=== PATIENT | male | born 1995 | race Caucasian/White ===

== ENCOUNTER → 2020-09-23 11:02 | Outpatient (BNVA) | payer SELFPAY | PROVIDERS: Visit Provider Nurse Practitioner Family | DX: Z20.822 Contact with and (suspected) exposure to COVID-19 (principal) | CPT/HCPCS: 87635 ==

== ENCOUNTER 2024-08-03 16:15 | Inpatient (IN) | payer SELFPAY ==
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
[2024-08-03 16:22] VITALS: RESP 17
[2024-08-03 16:48] LABS: Basophils # 0.1 10^3/uL (0.0-0.1); Basophils % 0.5 %; Eosinophils # 0.2 10^3/uL (0.0-0.8); Eosinophils % 1.2 %; Hematocrit 45.8 % (37-53); Lymphocytes # 1.7 10^3/uL (0.8-4.8); Lymphocytes % 12.4 %; Mean Corpuscular HGB Conc 34.9 g/dL (30-55); Mean Corpuscular Hemoglobin 29.6 pg (27-33); Mean Corpuscular Volume 84.8 fl (82-101); Mean Platelet Volume 9.8 fL (7.4-10.4); Monocytes # 0.8 10^3/uL (0.2-0.9); Monocytes % 5.5 %; Neutrophils # 10.96 10^3/uL (1.8-7.7); Neutrophils % 79.9 %; Nucleated Red Blood Cells % 0 %; Platelet Count 235 10^3/cmm (157-399); Red Cell Distribution Width 13.6 % (12.1-15.1); White Blood Count 13.74 10^3/uL (3.29-11.43)
[2024-08-03 17:05] LABS: Alanine Aminotransferase 23 U/L (0-41); Albumin Level 4.7 g/dL (3.5-5.2); Alkaline Phosphatase 63 U/L (40-130); Anion Gap 17.7 (5-19); Aspartate Amino Transferase 15 U/L (0-40); Blood Urea Nitrogen 10 mg/dL (6-20); Calcium 9.1 mg/dL (8.5-10.5); Carbon Dioxide 24 mmol/L (22-29); Chloride 105 mmol/L (98-107); Creatinine Clr Calc Pharmacy 141.0378; Globulin 2.4 g/dL (1.3-4.6); Glomerular Filtration Rate 114.3 mL/min (90-130); Glucose 94 mg/dL (65-115); Osmolality Calculated 295 mOsm/kg (285-295); Potassium 3.7 mmol/L (3.5-5.1); Sodium 143 mmol/L (136-145); Total Bilirubin 0.7 mg/dL (0.15-1.2); Total Protein 7.1 g/dL (6.6-8.7)
[2024-08-03 17:07] LABS: Acetaminophen < 5.0 ug/mL (10-30); Alcohol Level < 10 mg/dL (0-10); Salicylate < 0.3 mg/dL (3-10)
[2024-08-03 17:08] VITALS: BP 144/80; PULSE 98; RESP 18; TEMP 36.6; O2SAT 94
[2024-08-03 17:51] VITALS: RESP 16
[2024-08-03 18:17] VITALS: BP 175/90; PULSE 82; RESP 16; TEMP 36.6; O2SAT 96
[2024-08-03 19:17] VITALS: BP 134/80; PULSE 78; RESP 18; TEMP 37.3; O2SAT 97
--- NOTE | 2024-08-03 19:40 | PC.NURSE ---
Patient came into the ED with affidavit from [facility]. Patient had a plan to take an overbundance of melatonin and hang himself. Patient also cut his left wrist today; there are two superficial scratches on left inner wrist. [facility] ago when he overdosed on sleeping pills. Patient says that he has a diagnosis of schizophrenia and suspects that he is autistic, but has never been diagnosed. Patient says that he experiences auditory and visual hallucinations. Patient constantly hears gibberish, and sometimes hears voices telling him to harm himself. Patient frequently sees his brother ( in 2008), and a former co-worker. Patient says that he is depressed. Patient says that he maybe has anxiety. Patient denies HI. Patient works at [employer] and lives in his father s and step-mother's basement. Patient doesn't have much support. Patient said that he cut himself today so that he could feel something. Patient also said that he has fleeting suicidal thoughts that he is sometimes able to ignore, and at other times, he acts on. Patient said that he feels lonely, but at the same time, he hates people. Patient quit drinking about three weeks ago. Said he was drinking a fifth of alcohol every two days for five years until this became too expensive. Patient was taking a medication for the auditory and visual hallucinations, but ran out of his medication about three weeks ago. Patient is interested in medication for depression. Patient has used therapy in the past but says that this did not help him.
--- NOTE | 2024-08-03 19:53 | PC.NURSE ---
96 hr rights reviewed with pt @[id number] with assistance of [facility] corrections officer Hair. All education reviewed at this time. No verbalized questions or concerns for HS. Pt copy was left with pt. Pt provided water. No further needs communicated to HS or other ER staff when asked.
[2024-08-03] MEDS: trazodone 50 mg Tablet PO (19:57)
[2024-08-04 06:00] VITALS: BP 129/85; PULSE 80; RESP 15; TEMP 36.9; O2SAT 100
[2024-08-04 08:23] LABS: Bilirubin Urine Negative (Negative); Blood Urine Negative (Negative); Glucose Urine UA Negative (Normal); Ketones Urine Negative (Negative); Leukocyte Esterase Urine Negative (Negative); Nitrate Urine Negative (Negative); Protein Urine Negative (Negative); Specific Gravity, Urine 1.011 (1.005-1.030); Urine Appearance Clear (CLEAR); Urine Color Yellow (Yellow); Urobilinogen Urine 0.2 mg/dL (Negative)
[2024-08-04 08:28] LABS: Add Urine Microscopic? YES; Bacteria Urine None Seen /hpf; Hyaline Casts Urine 0-4 /lpf; RBC Urine 0-2 /hpf (0-2); Squamous Epithelial Cell Urine 0-5 /hpf (0-5); WBC Urine 0-5 /hpf (0-5)
[2024-08-04 08:36] LABS: Amphetamines Screen Urine Negative (Negative); Barbiturates Screen Urine Negative (Negative); Benzodiazepines Screen Urine Negative (Negative); Cocaine Screen Urine Negative (Negative); Opiate Screen Urine Negative (Negative); PCP Screen Urine Negative (Negative); THC Screen Urine Negative (Negative)
[2024-08-04 10:22] LABS: Add Urine Culture? No
[2024-08-04 14:00] VITALS: BP 122/80; PULSE 89; RESP 16; TEMP 36.8; O2SAT 99
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
[2024-08-04] MEDS: acetaminophen 325 mg Tablet 650 MG PO (15:11)
[2024-08-04] MEDS: hyDROXYzine 25 mg Capsule 50 MG PO (19:21)
[2024-08-04] MEDS: trazodone 50 mg Tablet PO (19:22)
[2024-08-04 20:08] VITALS: BP 128/85; PULSE 73; RESP 18; TEMP 36.9; O2SAT 99
[2024-08-05 06:00] VITALS: BP 106/64; PULSE 74; RESP 18; TEMP 36.8; O2SAT 97
[2024-08-05] MEDS: fluoxetine 20 mg Capsule PO (09:13)
[2024-08-05 14:00] VITALS: BP 139/84; PULSE 94; TEMP 36.4; O2SAT 98
--- NOTE | 2024-08-05 17:33 | P.NPUPN_ITS ---
Subjective NPU 2 Subjective: 28-year-old male with a history of depre ssion and suicidal ideation along with a past history of reported psychosis who was admitted with plans for an overdose. The patient had reported that he continued to feel depressed but stated he was doing better. He continued to have problems with memory. He had admitted that he had been previously prescribed medicines in the past but conveniently decided never to fill the scripts. He had endorsed some continued feelings of hopelessness. He had been less isolative today and was able to attend groups. He had reported having problems with managing anxiety. He had denied any hallucinations at this time. He had reported no side effects from his Prozac and reported that he was frequently struggling with nightmares. Mental Status Exam 2 MSE Comments: Osvaldo is a pleasant white male who appeared his stated age with normal gait and fair eye contact who appeared well-nourished and cooperative on interview. He was alert and oriented to person, place, time, and situation. His speech was normal in regards to rate, rhythm, and prosody. There was evidence of mild psychomotor retardation. His mood was described as depressed. His affect was restricted in range and mood congruent. His thought process was linear, logical, and goal-directed. His thought content revealed suicidal ideation with a plan to overdose on melatonin. He denied any homicidal ideation. He did not appear to be responding internal stimuli. There was no evidence of delusional thinking. He denied auditory hallucinations His attention span appeared fair. His insight was poor. His judgment was poor. His impulse control appeared limited. Vitals/I&O/Wt Last Vital Signs Temp 97.5 F L 08/05/24 14:00 Pulse 94 08/05/24 14:00 Resp 18 08/05/24 06:00 BP 139/84 08/05/24 14:00 Pulse Ox 98 08/05/24 14:00 O2 Del Method Room Air 08/05/24 14:00 Data NPU 08/03/24 16:41 08/03/24 16:41 A&P Assessment and plan (1) Suicidal ideation: (2) MDD (major depressive disorder), recurrent episode, severe: (3) Psychotic disorder: Plan 28-year-old male who presents with depression with suicidal ideation with some evidence of problems with suppressed memories and an extended history of depression currently on no medications with reports of psychotic symptoms as well in the past. #1.? Engage patient in individual milieu and group therapy. #2?? Recommend sober living treatment at the highest level of care to which the patient is willing to commit #3??? CIWA for alcohol withdrawal #4?? TO-15 minute checks? #5?? Consider prazosin for ptsd related nightmares. #6 Continue Prozac 20mg daily for depression. PDMP PDMP Reviewed: Not Reviewed Involuntary Hold Information 2 Hold Status: Legal Status: 96 Hour Hold Date/Time Hold Expires: 08/07/24 @08/07/24 Attestations NPU 2 Medical Necessity Statement*: Inpatient hospitalization is medically necessary and deemed to be the clinically appropriate intervention at this time. Medications will be adjusted and initiated as indicated.? ? The patient?s likely length of stay is 4-6 days. ? Coding Level of Care Code Acute Code for Chg Fwd Diagnoses Suicidal ideation R45.851 MDD (major depressive disorder), recurrent episode, severe F33.2 Psychotic disorder F29
[2024-08-05 22:00] VITALS: BP 123/79; PULSE 88; RESP 18; TEMP 36.3; O2SAT 98
[2024-08-06 06:00] VITALS: BP 105/69; PULSE 88; RESP 16; TEMP 36.5; O2SAT 97
[2024-08-06] MEDS: fluoxetine 20 mg Capsule PO (09:25)
[2024-08-06 14:00] VITALS: BP 120/83; PULSE 76; RESP 16; TEMP 36.8; O2SAT 98
--- NOTE | 2024-08-06 14:51 | P.NPUDS_ITS ---
Diagnoses at Discharge Discharge Diagnosis (1) Suicidal ideation: Status: Acute (2) MDD (major depressive disorder), recurrent episode, severe: Status: Acute (3) Psychotic disorder: Status: Acute Reason for Visit Reason for Visit: SI Involuntary Hold Information Hold Status: Legal Status: 96 Hour Hold Date/Time Hold Expires: 08/07/24 @08/07/24 Discharge Data Studies Completed and Pending: Laboratory Results WBC 13.74 10^3/uL (3. 29-11.43) H 08/03/24 16:41 RBC 5.40 10^6/uL (3.8 5-5.65) 08/03/24 16:41 Hgb 16.00 g/dL (11.27 -16.99) 08/03/24 16:41 Hct 45.8 % (37-53) 08/03/24 16:41 MCV 84.8 fl (82-101) 08/03/24 16:41 MCH 29.6 pg (27-33) 08/03/24 16:41 MCHC 34.9 g/dL (30-55) 08/03/24 16:41 RDW 13.6 % (12.1-15.1 ) 08/03/24 16:41 Plt Count 235 10^3/cmm (157 -399) 08/03/24 16:41 MPV 9.8 fL (7.4-10.4) 08/03/24 16:41 Neut % (Auto) 79.9 % 08/03/24 16:41 Lymph % (Auto) 12.4 % 08/03/24 16:41 [place] % (Auto) 5.5 % 08/03/24 16:41 Eos % (Auto) 1.2 % 08/03/24 16:41 Baso % (Auto) 0.5 % 08/03/24 16:41 Neut # (Auto) 10.96 10^3/uL (1. 8-7.7) H 08/03/24 16:41 Lymph # (Auto) 1.7 10^3/uL (0.8- 4.8) 08/03/24 16:41 [place] # (Auto) 0.8 10^3/uL (0.2- 0.9) 08/03/24 16:41 Eos # (Auto) 0.2 10^3/uL (0.0- 0.8) 08/03/24 16:41 Baso # (Auto) 0.1 10^3/uL (0.0- 0.1) 08/03/24 16:41 Nucleated RBC % (a uto) 0 % 08/03/24 16:41 Nucleated RBCs # 0.0 /100WBC 08/03/24 16:41 Sodium 143 mmol/L (136-1 45) 08/03/24 16:41 Potassium 3.7 mmol/L (3.5-5 .1) 08/03/24 16:41 Chloride 105 mmol/L (98-10 7) 08/03/24 16:41 Carbon Dioxide 24 mmol/L (22-29) 08/03/24 16:41 Anion Gap 17.7 (5-19) 08/03/24 16:41 BUN 10 mg/dL (6-20) 08/03/24 16:41 Creatinine 0.8 mg/dL (0.7-1. 2) 08/03/24 16:41 GFR Calculation 114.3 mL/min (90- 130) 08/03/24 16:41 Glucose 94 mg/dL (65-115) 08/03/24 16:41 Calculated Osmolal ity 295 mOsm/kg (285- 295) 08/03/24 16:41 Calcium 9.1 mg/dL (8.5-10 .5) 08/03/24 16:41 Total Bilirubin 0.7 mg/dL (0.15-1 .2) 08/03/24 16:41 AST 15 U/L (0-40) 08/03/24 16:41 ALT 23 U/L (0-41) 08/03/24 16:41 Alkaline Phosphata se 63 U/L (40-130) 08/03/24 16:41 Total Protein 7.1 g/dL (6.6-8.7 ) 08/03/24 16:41 Albumin 4.7 g/dL (3.5-5.2 ) 08/03/24 16:41 Globulin 2.4 g/dL (1.3-4.6 ) 08/03/24 16:41 Urine Color Yellow (Yellow) 08/03/24 19:40 Urine Appearance Clear (CLEAR) 08/03/24 19:40 Urine pH 7.0 (5-7) 08/03/24 19:40 Ur Specific Gravit y 1.011 (1.005-1.0 30) 08/03/24 19:40 Urine Protein Negative (Negati ve) 08/03/24 19:40 Urine Glucose (UA) Negative (Normal ) 08/03/24 19:40 Urine Ketones Negative (Negati ve) 08/03/24 19:40 Urine Blood Negative (Negati ve) 08/03/24 19:40 Urine Nitrate Negative (Negati ve) 08/03/24 19:40 Urine Bilirubin Negative (Negati ve) 08/03/24 19:40 Urine Urobilinogen 0.2 mg/dL (Negati ve) 08/03/24 19:40 Ur Leukocyte Kendy ase Negative (Negati ve) 08/03/24 19:40 Urine RBC 0-2 /hpf (0-2) 08/03/24 19:40 Urine WBC 0-5 /hpf (0-5) 08/03/24 19:40 Ur Squamous Epith Cells 0-5 /hpf (0-5) 08/03/24 19:40 Amorphous Sediment Not Reportable 08/03/24 19:40 Urine Bacteria None seen /hpf (N ONE) 08/03/24 19:40 Hyaline Casts 0-4 /lpf H 08/03/24 19:40 Salicylates < 0.3 mg/dL (3-10 ) L 08/03/24 16:41 Urine Opiates Scre en Negative ng/mL (N egative) 08/03/24 19:40 Acetaminophen < 5.0 ug/mL (10-3 0) L 08/03/24 16:41 Ur Barbiturates Sc reen Negative ng/mL (N egative) 08/03/24 19:40 Ur Phencyclidine S crn Negative ng/mL (N egative) 08/03/24 19:40 Ur Amphetamines Sc reen Negative ng/mL (N egative) 08/03/24 19:40 U Benzodiazepines Scrn Negative ng/mL (N egative) 08/03/24 19:40 Urine Cocaine Scre en Negative ng/mL (N egative) 08/03/24 19:40 U Marijuana (THC) Screen Negative ng/mL (N egative) 08/03/24 19:40 Ethyl Alcohol < 10 mg/dL (0-10) 08/03/24 16:41 Vitals: Last Vital Signs Temp 98.2 F 08/06/24 14:00 Pulse 76 08/06/24 14:00 Resp 16 08/06/24 14:00 BP 120/83 08/06/24 14:00 Pulse Ox 98 08/06/24 14:00 O2 Del Method Room Air 08/06/24 14:00 Discharge Plan Discharge Patient Disposition: Home Condition: Stable Prescriptions: No Action No Known Home Medications Patient Instructions: Opioid Safety Coding Level of Care Code Acute Code for Chg Fwd Diagnoses Suicidal ideation R45.851 MDD (major depressive disorder), recurrent episode, severe F33.2 Psychotic disorder F29
--- NOTE | 2024-08-06 14:52 | P.NPUPN_ITS ---
Subjective NPU 2 Subjective: 28-year-old male with a history of depre ssion and suicidal ideation along with a past history of reported psychosis who was admitted with plans for an overdose. Patient had endorsed some PTSD symptoms. He had also reported having periods of dissociation and problems with memory stating that he would often go through periods of time where he had struggles with remembering where he was or reporting that blocks of time seem to disappear. He had reported having a flashback and a nightmare last night regarding the of a coworker that he had witnessed. He had reported some feelings of sadness. He had reported no hallucinations at this time. He had reported that he had been feeling better and was no longer feeling suicidal at the moment. He had reported a loss of energy and some feelings of guilt and hopelessness still. He had reported no prior history of intense psychotherapy. T Mental Status Exam 2 MSE Comments: Osvaldo is a pleasant white male who appeared his stated age with normal gait and fair eye contact who appeared well-nourished and cooperative on interview. He was alert and oriented to person, place, time, and situation. His speech was normal in regards to rate, rhythm, and prosody. There was evidence of mild psychomotor retardation. His mood was described as better. His affect was slightly restricted today. His thought process was linear, logical, and goal- directed. His thought content revealed suicidal ideation with no plan at this time. He denied any homicidal ideation. He did not appear to be responding internal stimuli. There was no evidence of delusional thinking. He denied auditory hallucinations His attention span appeared fair. His insight was poor. His judgment was poor. His impulse control appeared to be improving. Vitals/I&O/Wt Last Vital Signs Temp 98.2 F 08/06/24 14:00 Pulse 76 08/06/24 14:00 Resp 16 08/06/24 14:00 BP 120/83 08/06/24 14:00 Pulse Ox 98 08/06/24 14:00 O2 Del Method Room Air 08/06/24 14:00 Data NPU 08/03/24 16:41 08/03/24 16:41 A&P Assessment and plan (1) MDD (major depressive disorder), recurrent episode, severe: (2) Suicidal ideation: (3) PTSD (post-traumatic stress disorder): (4) Psychotic disorder: Plan 28-year-old male who presents with depression with suicidal ideation with some evidence of problems with suppressed memories and an extended history of depression currently on no medications with reports of psychotic symptoms as well in the past. #1.? Engage patient in individual milieu and group therapy. #2?? Recommend sober living treatment at the highest level of care to which the patient is willing to commit #3??? CIWA for alcohol withdrawal #4?? TO-15 minute checks? #5?? Add prazosin 2mg at night for ptsd related nightmares. #6 Continue Prozac 20mg daily for depression. PDMP PDMP Reviewed: Not Reviewed Involuntary Hold Information 2 Hold Status: Legal Status: 96 Hour Hold Date/Time Hold Expires: 08/07/24 @08/07/24 Attestations NPU 2 Medical Necessity Statement*: Inpatient hospitalization is medically necessary and deemed to be the clinically appropriate intervention at this time. Medications will be adjusted and initiated as indicated.? ? The patient?s likely length of stay is 1-2 days. ? Coding Level of Care Code Acute Code for Chg Fwd Diagnoses MDD (major depressive disorder), recurrent episode, severe F33.2 Suicidal ideation R45.851 PTSD (post-traumatic stress disorder) F43.10 Psychotic disorder F29
[2024-08-06] MEDS: acetaminophen 325 mg Tablet 650 MG PO (17:53)
[2024-08-06 19:22] VITALS: BP 117/80; PULSE 86; RESP 16; TEMP 36.9; O2SAT 97
[2024-08-06] MEDS: prazosin 1 mg Capsule 2 MG PO (20:39)
[2024-08-07 06:00] VITALS: BP 119/75; PULSE 95; RESP 18; TEMP 36.8; O2SAT 98
[2024-08-07] MEDS: fluoxetine 20 mg Capsule PO (08:30)
--- NOTE | 2024-08-07 09:18 | P.NPUDS_ITS ---
Diagnoses at Discharge Discharge Diagnosis (1) MDD (major depressive disorder), recurrent episode, severe: Status: Acute (2) Suicidal ideation: Status: Acute (3) PTSD (post-traumatic stress disorder): Status: Acute (4) Psychotic disorder: Status: Acute Reason for Visit Reason for Visit: SI Brief History: History of Present Illness Osvaldo Rajan is a 28 year old male who presented to the emergency department with complaints of suicidal ideation with a plan to overdose on sleeping pills. The patient had reported that he had made an attempt to overdose on melatonin and states that his friend had locked him in a closet for 2 days and made him throw up with the pills. He had reported that he was having thoughts of wanting to hang himself. He reports that he has been feeling depressed for many years but reports that he has been feeling worse over the past few months without any clear triggers to worsening depression. He reports that he has been struggling with feeling tired all day. He states he has been crying more frequently. He reports low energy and low motivation and feelings of guilt. Patient had reported having multiple depressive episodes in the past since his childhood. He also reports that he had caused potentially the of a coworker from a giant cannonball at work and states that he has recurring nightmares about his coworkers . 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 He reports that he has recurring flashbacks about the event. He reports that he is often put on edge and often feels as if something bad were going to happen. He reports having chronic disturbance in sleep. He reports difficulties with concentration. Furthermore, he denies any history of karlo. He does report in the past having auditory hallucinations beginning at the age of 18 and states that he had been prescribed a medication that he had ran out of 2 weeks ago. He had stated that he has problems with his memory and was uncertain as to what the medications were that he was taking. He had also reported that he had voices that would often tell him to overdose on pills. He reports no current hallucinations today. He had denied any thoughts in the past of hurting others. He does report that he struggles with anxiety. He endorses anhedonia. He reports diminished appetite. Patient reports no illicit drug use. He had reported that he had drank alcohol more severely in the past but states that he had been cutting down and reports drinking on occasion 1-2 times per week. The patient had reported that in the past he used to see visions of his now brother. Inpatient psychiatric history: The patient had reported that he had been hospitalized at the age of 12 for more than a year in a psychiatric facility in [facility]. Outpatient psychiatric history: He had reported having brief psychotherapy after the of a coworker approximately 2 years ago. He had reported having problems with memory but states that he had been in some sort of psychiatric treatment in [place] in the past as well. Previous medications are unknown. He had endorsed having been treated for ADHD as a child. Substance abuse history: The patient denied any history of opiate or stimulant abuse. He had reported no drug or alcohol treatment. He had reported that he used to use marijuana on a routine basis beginning in adolescence but stopped using 4 to 5 years ago. He had reported more severe alcohol use drinking nearly every day a pint of alcohol but reported after repeated blackouts and shakes that he has cut down his use. Current medications: None Medical history: None reported Surgical history: None Allergies: Cinnamon history: None Legal history: None Family psychiatric history: History of alcoholism in father Social history: Patient had been diagnosed with a speech delay and had to repeat kindergarten with an unspecified learning disorder. He did graduate from high school with a normal diploma. He was born in [facility]. His biological parents stayed together until they at the age of 15. He has 2 siblings 1 brother who at the age of 19 after a 4 cao accident. He also has a older sister age 34 who lives nearby. He has never been and has no children. After high school he had worked in the [employer] area in [place] until an unfortunate accident of a coworker had led him to quit working there. He currently works at [employer] and lives with his dad and stepmother in [facility]. He is not on disability. He had minimized any history of sexual, physical, or emotional abuse stating that he did not have any memory of this. Hospital Course Hospital Course The patient on interview had revealed significant symptoms suggestive of PTSD with periods of dissociative episodes noted. He had also endorsed depression but had denied any psychotic symptoms. Prozac was initiated and titrated up to a dose of 20 mg daily with the addition of prazosin given to help with his frequent PTSD associated nightmares reported. Patient was agreeable to follow- up with a physician for medication management and consider psychotherapy for targeting PTSD and depression. During the hospitalization, the patient had routine laboratory studies which were within normal limits except for a few outliers.? Additionally, there was a general medical evaluation which was also within normal limits and revealed no new acute processes.? At the time of discharge, lethality was denied and psychosis was resolving.? Mood and anxiety were well managed.? The patient endorsed a plan to avoid all drugs of abuse and follow up with the aftercare recommendations of the treatment team.? The patient was evaluated and deemed to be absent credible lethality and had achieved the maximum benefit from an inpatient hospitalization, and so was discharged. ? Involuntary Hold Information Hold Status: Legal Status: 96 Hour Hold Date/Time Hold Expires: 08/07/24 @08/07 Mental Status Exam MSE Comments: Osvaldo is a pleasant white male who appeared his stated age with normal gait and fair eye contact who appeared well-nourished and cooperative on interview. He was alert and oriented to person, place, time, and situation. His speech was normal in regards to rate, rhythm, and prosody. There was evidence of mild psychomotor retardation. His mood was described as better. His affect was slightly restricted today. His thought process was linear, logical, and goal-directed. His thought content revealed suicidal ideation with no plan at this time. He denied any homicidal ideation. He did not appear to be responding internal stimuli. There was no evidence of delusional thinking. He denied auditory hallucinations His attention span appeared fair. His insight was poor. His judgment was fair. His impulse control appeared to be fair. Discharge Data Studies Completed and Pending: Laboratory Results WBC 13.74 10^3/uL (3. 29-11.43) H 08/03/24 16:41 RBC 5.40 10^6/uL (3.8 5-5.65) 08/03/24 16:41 Hgb 16.00 g/dL (11.27 -16.99) 08/03/24 16:41 Hct 45.8 % (37-53) 08/03/24 16:41 MCV 84.8 fl (82-101) 08/03/24 16:41 MCH 29.6 pg (27-33) 08/03/24 16:41 MCHC 34.9 g/dL (30-55) 08/03/24 16:41 RDW 13.6 % (12.1-15.1 ) 08/03/24 16:41 Plt Count 235 10^3/cmm (157 -399) 08/03/24 16:41 MPV 9.8 fL (7.4-10.4) 08/03/24 16:41 Neut % (Auto) 79.9 % 08/03/24 16:41 Lymph % (Auto) 12.4 % 08/03/24 16:41 [place] % (Auto) 5.5 % 08/03/24 16:41 Eos % (Auto) 1.2 % 08/03/24 16:41 Baso % (Auto) 0.5 % 08/03/24 16:41 Neut # (Auto) 10.96 10^3/uL (1. 8-7.7) H 08/03/24 16:41 Lymph # (Auto) 1.7 10^3/uL (0.8- 4.8) 08/03/24 16:41 [place] # (Auto) 0.8 10^3/uL (0.2- 0.9) 08/03/24 16:41 Eos # (Auto) 0.2 10^3/uL (0.0- 0.8) 08/03/24 16:41 Baso # (Auto) 0.1 10^3/uL (0.0- 0.1) 08/03/24 16:41 Nucleated RBC % (a uto) 0 % 08/03/24 16: Nucleated RBCs # 0.0 /100WBC 08/03/24 16:41 Sodium 143 mmol/L (136-1 45) 08/03/24 16:41 Potassium 3.7 mmol/L (3.5-5 .1) 08/03/24 16:41 Chloride 105 mmol/L (98-10 7) 08/03/24 16:41 Carbon Dioxide 24 mmol/L (22-29) 08/03/24 16:41 Anion Gap 17.7 (5-19) 08/03/24 16:41 BUN 10 mg/dL (6-20) 08/03/24 16:41 Creatinine 0.8 mg/dL (0.7-1. 2) 08/03/24 16:41 GFR Calculation 114.3 mL/min (90- 130) 08/03/24 16:41 Glucose 94 mg/dL (65-115) 08/03/24 16:41 Calculated Osmolal ity 295 mOsm/kg (285- 295) 08/03/24 16:41 Calcium 9.1 mg/dL (8.5-10 .5) 08/03/24 16:41 Total Bilirubin 0.7 mg/dL (0.15-1 .2) 08/03/24 16:41 AST 15 U/L (0-40) 08/03/24 16:41 ALT 23 U/L (0-41) 08/03/24 16:41 Alkaline Phosphata se 63 U/L (40-130) 08/03/24 16:41 Total Protein 7.1 g/dL (6.6-8.7 ) 08/03/24 16:41 Albumin 4.7 g/dL (3.5-5.2 ) 08/03/24 16:41 Globulin 2.4 g/dL (1.3-4.6 ) 08/03/24 16:41 Urine Color Yellow (Yellow) 08/03/24 19:40 Urine Appearance Clear (CLEAR) 08/03/24 19:40 Urine pH 7.0 (5-7) 08/03/24 19:40 Ur Specific Gravit y 1.011 (1.005-1.0 30) 08/03/24 19:40 Urine Protein Negative (Negati ve) 08/03/24 19:40 Urine Glucose (UA) Negative (Normal ) 08/03/24 19:40 Urine Ketones Negative (Negati ve) 08/03/24 19:40 Urine Blood Negative (Negati ve) 08/03/24 19:40 Urine Nitrate Negative (Negati ve) 08/03/24 19:40 Urine Bilirubin Negative (Negati ve) 08/03/24 19:40 Urine Urobilinogen 0.2 mg/dL (Negati ve) 08/03/24 19:40 Ur Leukocyte Kendy ase Negative (Negati ve) 08/03/24 19:40 Urine RBC 0-2 /hpf (0-2) 08/03/24 19:40 Urine WBC 0-5 /hpf (0-5) 08/03/24 19:40 Ur Squamous Epith Cells 0-5 /hpf (0-5) 08/03/24 19:40 Amorphous Sediment Not Reportable 08/03/24 19:40 Urine Bacteria None seen /hpf (N ONE) 08/03/24 19:40 Hyaline Casts 0-4 /lpf H 08/03/24 19:40 Salicylates < 0.3 mg/dL (3-10 ) L 08/03/24 16:41 Urine Opiates Scre en Negative ng/mL (N egative) 08/03/24 19:40 Acetaminophen < 5.0 ug/mL (10-3 0) L 08/03/24 16:41 Ur Barbiturates Sc reen Negative ng/mL (N egative) 08/03/24 19:40 Ur Phencyclidine S crn Negative ng/mL (N egative) 08/03/24 19:40 Ur Amphetamines Sc reen Negative ng/mL (N egative) 08/03/24 19:40 U Benzodiazepines Scrn Negative ng/mL (N egative) 08/03/24 19:40 Urine Cocaine Scre en Negative ng/mL (N egative) 08/03/24 19:40 U Marijuana (THC) Screen Negative ng/mL (N egative) 08/03/24 19:40 Ethyl Alcohol < 10 mg/dL (0-10) 08/03/24 16:41 Vitals: Last Vital Signs Temp 98.3 F 08/07/24 06:00 Pulse 95 08/07/24 06:00 Resp 18 08/07/24 06:00 BP 119/75 08/07/24 06:00 Pulse Ox 98 08/07/24 06:00 O2 Del Method Room Air 08/07/24 06:00 Discharge Plan Discharge Patient Disposition: Home Condition: Stable Prescriptions: New prazosin 2 mg capsule 2 mg PO BEDTIME 30 Days Qty: 30 1RF fluoxetine 20 mg Capsule 20 mg PO DAILY 30 Days Qty: 30 1RF fluoxetine [Prozac] 20 mg capsule 20 mg PO DAILY Qty: 30 0RF prazosin 2 mg capsule 2 mg PO QPM Qty: 30 0RF Discharge Orders: Discharge Order (Routine); Ordered 08/07/24 Ordered By: Kenan River Referrals: [facility] [Outside] Referral Note: Initial assessment. Will call with appointment. Discharge Diet: Usual diet Discharge Activity: Resume usual activity Patient Instructions: Prazosin (By mouth), Fluoxetine (By mouth), Depression (DC), PTSD (Post Traumatic Stress Disorder) (DC), Psychotic Disorder (DC), Opioid Safety Discharge Attestations NPU Time Spent in Discharge Care*: less than 30 min Specific Discharge Activities: Specific discharge activities: educating patient, discussing with counseling case manager/social workers/dc planners and documenting/other paperwork Coding Level of Care Code Acute Code for g Fwd Diagnoses MDD (major depressive disorder), recurrent episode, severe F33.2 Suicidal ideation R45.851 PTSD (post-traumatic stress disorder) F43.10 Psychotic disorder F29
[2024-08-07 09:43] VITALS: BP 119/75; PULSE 95; RESP 18; TEMP 36.8; O2SAT 98
[2024-08-07 14:00] VITALS: BP 118/74; PULSE 78; RESP 16; TEMP 36.8; O2SAT 98
== END 2024-08-07 14:22 | disposition home or self-care (01) | DRG 885 ==
LOC: ER 17:42 → NP 18:16
PROVIDERS: Physician Assistant; Admitting Provider Psychiatry & Neurology Psychiatry; Emergency Provider Family Medicine; Visit Provider Psychiatry & Neurology Psychiatry
DX: F33.2 Major depressive disorder, recurrent severe without psychotic features (principal); R45.851 Suicidal ideations; F43.10 Post-traumatic stress disorder, unspecified; F10.10 Alcohol abuse, uncomplicated; F41.9 Anxiety disorder, unspecified; Z91.128 Patient's intentional underdosing of medication regimen for other reason; Z81.1 Family history of alcohol abuse and dependence
CPT/HCPCS: 36415; 80053; 80306; 80307; 81001; 85025; 97150; 97165; 99285; J9999